=== PATIENT | male | born 1970 | race Caucasian/White ===

== ENCOUNTER 2018-11-14 11:26 | Outpatient (CLI) | payer MEDICAID | END 2018-11-14 11:27 | disposition critical access hospital (66) | LOC: EMS 11:26 | PROVIDERS: ATTEND Surgery | DX: R07.9 Chest pain, unspecified (principal); R20.0 Anesthesia of skin | CPT/HCPCS: A0425; A0427; A0999 ==

== ENCOUNTER 2018-11-14 11:47 | Emergency (ER) | payer MEDICAID ==
--- NOTE | 2018-11-14 14:08 | CT Report ---
Reason: syncope Procedure Date: 11/14/2018 Accession Number: [id number] / [id number] Procedure: CT - Head W/O CPT Code: FULL RESULT: EXAM: CT HEAD EXAM DATE: 11/14/2018 01:55 PM. CLINICAL HISTORY: Syncope. COMPARISON: None. TECHNIQUE: Multiaxial CT images were obtained from the foramen magnum to the vertex. Reformats: Sagittal and coronal. IV contrast: None. In accordance with CT protocol optimization, one or more of the following dose reduction techniques were utilized for this exam: automated exposure control, adjustment of mA and/or KV based on patient size, or use of iterative reconstructive technique. FINDINGS: Parenchyma: No intraparenchymal hemorrhage. No evidence of mass, midline shift, or CT findings of infarction. [place]-white differentiation is distinct. Normal volume for age. Extraaxial Spaces: Normal for age. No subdural or epidural collections identified. Ventricles: Normal in size and position. Sinuses and Orbits: Imaged paranasal sinuses, orbits, and mastoids show no significant abnormality. Bones: No evidence of fracture or calvarial defect. Other: None. IMPRESSION: Normal head CT. RADIA
--- NOTE | 2018-11-14 14:27 | ED Physician Documentation ---
PD HPI CHEST PAIN - Stated complaint Stated Complaint: chest px/soa - Chief complaint Chief Complaint: Cardiac - History obtained from History obtained from: Patient - History of Present Illness Timing - onset: How many years ago (5) Timing - duration: Hours Timing - details: Gradual onset, Intermittant Pain level max: 7 Pain level now: 5 Quality: Pressure Location: Left chest Radiation: Left upper extremity Improved by: Nothing Worsened by: Other (Nothing) Associated symptoms: Shortness of air, Feeling faint / dizzy. No: Diaphoresis, Nausea, Vomiting, General Weakness, Palpitations, Cough Similar symptoms before: Has not had sx before Recently seen: Not recently seen - Additional information Additional information: 48-year-old male with no past medical history, 3 pack/day cigarette smoker, family history of heart attack here with complaint of left-sided chest pain for the past 5 years which had been going on intermittently and sometimes radiating to the left arm associated with shortness of breath. He states it would last from seconds to sometimes all day. He described the left-sided chest pain as pressure which ranges between 5-7/10. Patient stated she he was having a disagreement with his over the phone so he started having chest discomfort and felt dizzy and then passed out. He does not recall how long his loss of consciousness lasted. He has not seen anybody for his chest pain. He denies any travel, trauma or drugs nor alcohol. Review of Systems Ten Systems: 10 systems reviewed and negative Constitutional: denies: Fever, Myalgias Cardiac: reports: Chest pain / pressure. denies: Palpitations, Pedal edema Respiratory: reports: Dyspnea. denies: Cough GI: denies: Abdominal Pain, Nausea, Vomiting Neurologic: reports: LOC. denies: Generalized weakness PD PAST MEDICAL HISTORY - Past Medical History Cardiovascular: None, Murmur Respiratory: COPD Neuro: None, Migraines Endocrine/Autoimmune: None GI: None : None HEENT: None Psych: Bipolar disorder, Schizophrenia, ADD/ADHD, Other Musculoskeletal: None Derm: None - Past Surgical History Past Surgical History: Yes HEENT: Tonsil/Adenoidectomy - Present Medications Home Medications: Ambulatory Orders Medication Instructions Recorded Confirmed Albuterol Sulf [Ventolin Hfa 1 - 2 puffs INH Q4HR PRN #1 inhaler 11/14/18 Inhaler] - Allergies Allergies/Adverse Reactions: Allergies Allergy/AdvReac Type Severity Reaction Status Date / Time bupropion HCl * Allergy psychotic Verified 11/14/18 11:53 [From Wellbutrin] clonazepam [From Klonopin] Allergy psychotic Verified 11/14/18 11:53 fluoxetine HCl * Allergy psychotic Verified 11/14/18 11:53 [From Prozac] Penicillins Allergy Anaphylaxis Verified 11/14/18 11:53 bee stings Allergy resp Uncoded 11/14/18 11:53 - Social History Does the pt smoke?: Yes Smoking Status: Current every day smoker Does the pt drink ETOH?: No Does the pt have substance abuse?: No - Immunizations Immunizations are current?: Yes - POLST Patient has POLST: No PD ED PE NORMAL - Vitals Vital signs reviewed: Yes - General General: Alert and oriented X 3, No acute distress, Well developed/nourished - HEENT HEENT: PERRL, EOMI, Moist mucous membranes, Pharynx benign - Neck Neck: Supple, no meningeal sign, No bony TTP - Cardiac Cardiac: RRR, No murmur - Respiratory Respiratory: No respiratory distress, Other (Few expiratory wheezes bilaterally) - Abdomen Abdomen: Normal bowel sounds, Soft, Non tender, Non distended - Back Back: No CVA TTP, No spinal TTP - Derm Derm: Warm and dry - Extremities Extremities: No deformity - Neuro Neuro: Alert and oriented X 3, 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, No motor deficit, No sensory deficit, Normal speech - Psych Psych: Normal mood, Normal affect Results - Vitals Vitals: Vital Signs - 24 hr 11/14/18 11/14/18 11/14/18 11:49 13:42 16:03 Temperature 36.4 C L Heart Rate 84 68 66 Respiratory 16 20 16 Rate Blood Pressure 127/94 H 116/102 H 120/78 O2 Saturation 99 98 99 Oxygen O2 Source Room air - EKG (time done) 1154 Rate: Rate (enter#) Rhythm: NSR [place]: Normal Intervals: Normal [place] QRS: Normal Ischemia: Normal ST segments - Labs Labs: Laboratory Tests 11/14/18 11/14/18 11/14/18 14:33 14:33 14:33 WBC 8.6 RBC 5.32 Hgb 16.5 Hct 48.7 MCV 91.6 MCH 31.1 H MCHC 33.9 RDW 13.0 Plt Count 242 MPV 9.2 Neut # (Auto) 5.2 Lymph # (Auto) 2.5 [place] # (Auto) 0.7 Eos # (Auto) 0.2 Baso # (Auto) 0.1 Absolute Nucleated RBC 0.00 Nucleated RBC % 0.1 D-Dimer Sodium 136 Potassium 4.3 Chloride 106 Carbon Dioxide 23 Anion Gap 7.0 BUN 19 Creatinine 1.1 Estimated GFR (MDRD) 72 L Glucose 104 H Calcium 9.6 Total Bilirubin 1.3 H AST 19 ALT 20 Alkaline Phosphatase 63 Troponin I < 0.04 B-Natriuretic Peptide Total Protein 7.7 Albumin 4.4 Globulin 3.3 Albumin/Globulin Ratio 1.3 Lipase 28 11/14/18 11/14/18 11/14/18 14:33 14:33 17:01 WBC RBC Hgb Hct MCV MCH MCHC RDW Plt Count MPV Neut # (Auto) Lymph # (Auto) [place] # (Auto) Eos # (Auto) Baso # (Auto) Absolute Nucleated RBC Nucleated RBC % D-Dimer < 200.0 L Sodium Potassium Chloride Carbon Dioxide Anion Gap BUN Creatinine Estimated GFR (MDRD) Glucose Calcium Total Bilirubin AST ALT Alkaline Phosphatase Troponin I < 0.04 B-Natriuretic Peptide 9 Total Protein Albumin Globulin Albumin/Globulin Ratio Lipase PD MEDICAL DECISION MAKING - ED course Complexity details: reviewed results, re-evaluated patient, considered differential (Angina, ACS, unstable angina, PE, bronchospasm, intracranial bleed), d/w patient, d/w family ED course: 1520 patient inform of test results and agreed to CT chest scan. Patient received Nitropaste earlier and patient to get off as it is not working for his chest discomfort. 1713 patient had been telling the staff that he wants to go home the past 10 minutes. He did agree to wait for the second heart enzyme results. Patient updated on test results Including liver lesion which will require outpatient follow-up Such as liver CT or ultrasound. Patient did say he used to drink a lot several years ago. Discussed smoking cessation. Instructed to follow-up with primary doctor tomorrow for reevaluation and a referral for outpatient stress test.1747-second troponin negative will discharge patient.Patient had requested for albuterol inhaler for his wheezing. He was encouraged to stop smoking. Departure - Departure Disposition: 01 Home, Self Care Clinical Impression: Chest pain Qualifiers: Chest pain type: unspecified Qualified Code(s): R07.9 - Chest pain, unspecified Condition: Stable Instructions: ED Chest Pain Atypical Unkn Cause, ED Smoking Cessation Prescriptions: Albuterol Sulf [Ventolin Hfa Inhaler] 1 - 2 puffs INH Q4HR PRN #1 inhaler PRN Reason: Shortness Of Air/Wheezing Comments: Follow-up with your primary doctor tomorrow for reevaluation and referral to outpatient stress test And liver CT or liver ultrasound referral. [facility]. If worse return to the emergency room.
[2018-11-14 14:42] LABS: BASOPHILS # (AUTO) 0.1 10^3/uL (0.0-0.1); BASOPHILS % (AUTO) 0.9 %; EOSINOPHILS # (AUTO) 0.2 10^3/uL (0.0-0.7); EOSINOPHILS % (AUTO) 2.1 %; HGB - HEMOGLOBIN 16.5 g/dL (14.0-18.0); LYMPHOCYTES # (AUTO) 2.5 10^3/uL (1.5-3.5); LYMPHOCYTES % (AUTO) 28.7 %; MEAN CORPUSCULAR HEMOGLOBIN 31.1 pg (27.0-31.0); MEAN CORPUSCULAR HGB CONC 33.9 g/dL (32.0-36.0); MEAN CORPUSCULAR VOLUME 91.6 fL (80.0-94.0); MEAN PLATELET VOLUME 9.2 fL (7.4-11.4); MONOCYTES # (AUTO) 0.7 10^3/uL (0.0-1.0); MONOCYTES % (AUTO) 8.2 %; NEUTROPHILS # (AUTO) 5.2 10^3/uL (1.5-6.6); NEUTROPHILS % (AUTO) 60.1 %; PLT - PLATELET COUNT 242 10^3/uL (130-450); RED BLOOD COUNT 5.32 10^6/uL (4.70-6.10); WHITE BLOOD COUNT 8.6 x10^3/uL (4.8-10.8)
--- NOTE | 2018-11-14 14:44 | XRAY Report ---
Reason: chest pain Procedure Date: 11/14/2018 Accession Number: [id number] / [id number] Procedure: XR - Chest 1 View X-Ray CPT Code: 36426 FULL RESULT: EXAM: CHEST RADIOGRAPHY EXAM DATE: 11/14/2018 02:00 PM. CLINICAL HISTORY: Chest pain. COMPARISON: 07/04/2012 1:15 PM. TECHNIQUE: 1 view. FINDINGS: Lungs/Pleura: No focal opacities evident. No pleural effusion. No pneumothorax. Mediastinum: Within exam limitations, the cardiomediastinal contour is normal. Other: None. IMPRESSION: Normal single view chest. RADIA
[2018-11-14 14:55] LABS: ALBUMIN 4.4 g/dL (3.2-5.5); ALBUMIN/GLOBULIN RATIO 1.3 (1.0-2.2); BILIRUBIN,TOTAL 1.3 mg/dL (0.2-1.0); CALCIUM 9.6 mg/dL (8.5-10.3); CREATININE 1.1 mg/dL (0.6-1.2); TOTAL PROTEIN 7.7 g/dL (6.7-8.2)
[2018-11-14] MEDS ORDERED: ASPIRIN CHEW 81 MG TABLET PO STA (15:23)
[2018-11-14] MEDS ORDERED: IOVERSOL 320 100 ML VIAL IVP ONE ×2 (15:30→16:06)
[2018-11-14 16:04] VITALS: BP 120/78
--- NOTE | 2018-11-14 16:56 | CT Report ---
Reason: chest pain, left chest mass Procedure Date: 11/14/2018 Accession Number: [id number] / [id number] Procedure: CT - Chest W/ CPT Code: FULL RESULT: EXAM: CT CHEST EXAM DATE: 11/14/2018 03:57 PM. CLINICAL HISTORY: Chest pain, left chest mass. COMPARISONS: None. TECHNIQUE: Routine helical CT imaging was performed through the chest. IV contrast: 90 cc Optiray 320. Reconstructions: Coronal and sagittal. In accordance with CT protocol optimization, one or more of the following dose reduction techniques were utilized for this exam: automated exposure control, adjustment of mA and/or KV based on patient size, or use of iterative reconstructive technique. FINDINGS: Lungs/Pleura: Clear. No effusion or pneumothorax. Mediastinum: Normal heart size. Borderline left ventricular wall thickness measuring 14.5 mm. No pericardial effusion. No coronary artery calcifications. No lymphadenopathy. Bones: Unremarkable. Visualized Abdomen: Small hepatic cysts or hemangiomata. A peripheral hypoattenuated lesion in the right lobe measures as much as 3.6 x 2.2 cm and has prominent rim calcification with at least 2 localized areas of more nodular appearing calcification. Otherwise unremarkable. Other: None. IMPRESSION: 1. Borderline left ventricular wall thickening suggesting early LVH. 2. Otherwise unremarkable chest. 3. Hepatic lesion as described. Differential considerations include Echinococcus cyst or an uncommon appearance of primary liver neoplasm. Further evaluation with dedicated liver CT, MR scan, or ultrasound may be helpful. RADIA
== END 2018-11-14 17:58 | disposition home or self-care (01) ==
LOC: EDUNIT# → ED 11:47
DX: R07.9 Chest pain, unspecified (principal); Z82.49 Family history of ischemic heart disease and other diseases of the circulatory system; K76.9 Liver disease, unspecified; J44.9 Chronic obstructive pulmonary disease, unspecified; F17.210 Nicotine dependence, cigarettes, uncomplicated
CPT/HCPCS: 36415; 70450; 71045; 71260; 80053; 83690; 83880; 84484; 85025; 85379; 93005; 99283; 99284; A9270; Q9967; 83605; 85610; 85730; 87040

== ENCOUNTER 2022-03-05 07:37 | Outpatient (CLI) | payer MEDICAID ==
[2022-03-05 11:54] LABS: BASOPHILS % (AUTO) 0.6 %; EOSINOPHILS # (AUTO) 0.3 10^3/uL (0.0-0.7); EOSINOPHILS % (AUTO) 4.3 %; HCT - HEMATOCRIT 43.9 % (42.0-52.0); HGB - HEMOGLOBIN 14.7 g/dL (14.0-18.0); LYMPHOCYTES # (AUTO) 2.9 10^3/uL (1.5-3.5); LYMPHOCYTES % (AUTO) 41.5 %; MEAN CORPUSCULAR HEMOGLOBIN 30.5 pg (27.0-31.0); MEAN CORPUSCULAR HGB CONC 33.5 g/dL (32.0-36.0); MEAN CORPUSCULAR VOLUME 91.1 fL (80.0-94.0); MEAN PLATELET VOLUME 11.8 fL (7.4-11.4); MONOCYTES # (AUTO) 0.6 10^3/uL (0.0-1.0); MONOCYTES % (AUTO) 9.2 %; NEUTROPHILS # (AUTO) 3.1 10^3/uL (1.5-6.6); NEUTROPHILS % (AUTO) 43.8 %; PLT - PLATELET COUNT 244 10^3/uL (130-450); RED BLOOD COUNT 4.82 10^6/uL (4.70-6.10); RED CELL DISTRIBUTION WIDTH 12.3 % (12.0-15.0)
[2022-03-05 11:58] LABS: ALBUMIN/GLOBULIN RATIO 1.2 (1.0-2.2); ALKALINE PHOSPHATASE 55 IU/L (42-121); ALT ALANINE AMINOTRANSFERASE 58 IU/L (10-60); AST ASPARTATE AMINOTRANSFERASE 32 IU/L (10-42); BILIRUBIN,TOTAL 1.1 mg/dL (0.2-1.0); BUN - BLOOD UREA NITROGEN 18 mg/dL (6-20); CALCIUM 9.2 mg/dL (8.5-10.3); CARBON DIOXIDE - CO2 27 mmol/L (21-32); CHLORIDE 102 mmol/L (101-111); CHOL/HDL RATIO 5.6 (<5.0); CHOLESTEROL 203 mg/dL; CREATININE 1.2 mg/dL (0.6-1.2); GFR - MDRD 64 (>89); GLUCOSE 148 mg/dL (70-100); HDL CHOLESTEROL 36 mg/dL; LDL CHOLESTEROL,CALCULATED 120 mg/dL; LDL/HDL RATIO 3.3 (<3.6); POTASSIUM 4.1 mmol/L (3.5-5.0); SODIUM 137 mmol/L (135-145); TOTAL PROTEIN 7.4 g/dL (6.7-8.2); TRIGLYCERIDES 236 mg/dL; VLDL CHOLESTEROL 47 mg/dL
[2022-03-05 12:08] LABS: THYROID STIMULATING HORMONE 1.69 uIU/mL (0.34-5.60)
== END 2022-03-05 07:38 | disposition home or self-care (01) ==
LOC: LAB.N 07:37
PROVIDERS: ATTEND Family Medicine
DX: I10 Essential (primary) hypertension (principal); E66.9 Obesity, unspecified; R06.83 Snoring
CPT/HCPCS: 36415; 80053; 80061; 83721; 84443; 85025

== ENCOUNTER 2022-03-19 06:47 | Outpatient (CLI) | payer MEDICAID ==
--- NOTE | 2022-03-19 13:22 | Ultrasound Report ---
PROCEDURE: Abdomen Complete INDICATIONS: LIVER MASS TECHNIQUE: Real-time scanning was performed of the abdominal and retroperitoneal organs, with image documentatio n. COMPARISON: CT chest 11/14/2018.. FINDINGS: Liver: Liver demonstrates increased in echogenicity compatible with fatty infiltration. There is a p eripherally calcified cyst in the right hepatic lobe measuring up to 3.1 x 3.0 x 2.8 cm corresponding to the finding on prior CT. There is also an adjacent smaller cyst or small component of a bilobed c yst also demonstrating peripheral calcification measuring up to 1.1 x 1.1 cm. Elsewhere, there are 2 additional simple appearing anechoic cysts demonstrated, measuring up to 1.3 cm and 1.1 cm. Gallbladder: No gallstones, gallbladder wall thickening, or pericholecystic fluid. Biliary ducts: Intrahepatic bile ducts are non-dilated. Extrahepatic bile duct caliber measures up to 0.5 cm. Pancreas: Visualized portions of the pancreas are sonographically normal. Pancreatic tail was not we ll seen. Spleen: Spleen is normal in size, measuring up to 10.6 cm, and homogeneous in echotexture. Kidneys: Right kidney measures 12.1 cm long; left kidney measures 11.3 cm long. No hydronephrosis. Aorta: Visualized aorta is normal in caliber at less than 3 cm. Iliacs: Proximal common iliac arteries are normal in caliber at less than 2.5 cm. IVC: Intrahepatic inferior vena cava is patent. Miscellaneous: No free abdominal fluid. IMPRESSION: 1. Increased hepatic echogenicity likely representing steatosis. 2. Peripherally calcified clustered cysts or bilobed cyst in the right hepatic lobe corresponding to the finding on prior CT. Findings likely represent sequelae of prior infection and are similar in siz e compared to the prior study given differences in technique. Reviewed by: Alfa Morfin MD on 03/19/2022 1:20 PM PDT Approved by: Alfa Morfin MD on 03/19/2022 1:20 PM PDT Station ID: [id number]
== END 2022-03-19 06:48 | disposition home or self-care (01) ==
LOC: DI 06:47
PROVIDERS: ATTEND Family Medicine
DX: K76.89 Other specified diseases of liver (principal); R93.2 Abnormal findings on diagnostic imaging of liver and biliary tract

== ENCOUNTER 2022-08-19 07:56 | Outpatient (CLI) | payer MEDICAID ==
[2022-08-19 12:27] LABS: BASOPHILS # (AUTO) 0.1 10^3/uL (0.0-0.1); BASOPHILS % (AUTO) 0.8 %; EOSINOPHILS # (AUTO) 0.3 10^3/uL (0.0-0.7); HGB - HEMOGLOBIN 16.4 g/dL (14.0-18.0); LYMPHOCYTES # (AUTO) 2.8 10^3/uL (1.5-3.5); LYMPHOCYTES % (AUTO) 43.2 %; MEAN CORPUSCULAR HEMOGLOBIN 30.3 pg (27.0-31.0); MEAN CORPUSCULAR HGB CONC 34.9 g/dL (32.0-36.0); MEAN CORPUSCULAR VOLUME 86.7 fL (80.0-94.0); MEAN PLATELET VOLUME 12.4 fL (7.4-11.4); MONOCYTES # (AUTO) 0.6 10^3/uL (0.0-1.0); MONOCYTES % (AUTO) 8.9 %; NEUTROPHILS # (AUTO) 2.8 10^3/uL (1.5-6.6); NEUTROPHILS % (AUTO) 42.5 %; PLT - PLATELET COUNT 231 10^3/uL (130-450); RED BLOOD COUNT 5.42 10^6/uL (4.70-6.10); RED CELL DISTRIBUTION WIDTH 11.9 % (12.0-15.0); WHITE BLOOD COUNT 6.5 x10^3/uL (4.8-10.8)
[2022-08-19 12:37] LABS: BILIRUBIN,URINE NEGATIVE (NEGATIVE); GLUCOSE, URINE (UA) >=1000 mg/dL (NEGATIVE); KETONES,URINE (UA) 40 mg/dL (NEGATIVE); LEUKOCYTE ESTERASE, URINE NEGATIVE (NEGATIVE); NITRITE,URINE NEGATIVE (NEGATIVE); OCCULT BLOOD,URINE NEGATIVE (NEGATIVE); PH,URINE 5.5 PH (5.0-7.5); PROTEIN,URINE NEGATIVE (NEGATIVE); UROBILINOGEN,URINE 0.2 (NORMAL) E.U./dL (NORMAL)
[2022-08-19 12:43] LABS: CLARITY,URINE CLEAR (CLEAR)
[2022-08-19 13:12] LABS: ALBUMIN 4.5 g/dL (3.2-5.5); ALBUMIN/GLOBULIN RATIO 1.2 (1.0-2.2); ALKALINE PHOSPHATASE 115 IU/L (42-121); ALT ALANINE AMINOTRANSFERASE 49 IU/L (10-60); AST ASPARTATE AMINOTRANSFERASE 21 IU/L (10-42); BILIRUBIN,TOTAL 1.3 mg/dL (0.2-1.0); BUN - BLOOD UREA NITROGEN 21 mg/dL (6-20); CALCIUM 10.1 mg/dL (8.5-10.3); CARBON DIOXIDE - CO2 25 mmol/L (21-32); CHLORIDE 99 mmol/L (101-111); CHOL/HDL RATIO 9.9 (<5.0); CHOLESTEROL 286 mg/dL; CREATININE 1.2 mg/dL (0.6-1.2); GFR - MDRD 64 (>89); GLUCOSE 368 mg/dL (70-100); HDL CHOLESTEROL 29 mg/dL; POTASSIUM 4.7 mmol/L (3.5-5.0); SODIUM 134 mmol/L (135-145); TOTAL PROTEIN 8.2 g/dL (6.7-8.2); TRIGLYCERIDES 1404 mg/dL
[2022-08-19 13:16] LABS: BACTERIA,URINE None Seen /HPF (None Seen); CRYSTALS,URINE 26-50 Uric Acid /LPF; RBC,URINE None Seen /HPF (0-5); SQUAMOUS EPITHELIAL CELL,UR NONE SEEN (<= Few); WBC,URINE 0-3 /HPF (0-3)
[2022-08-19 13:17] LABS: ESTIMATED AVERAGE GLUCOSE 315 mg/dL (70-100); HEMOGLOBIN A1c% 12.6 % (4.27-6.07)
[2022-08-19 15:12] LABS: LDL CHOLESTEROL,DIRECT 53 mg/dL; LDLD/HDL RATIO 1.8 (<3.6)
== END 2022-08-19 07:57 | disposition home or self-care (01) ==
LOC: LAB.N 07:56
PROVIDERS: ATTEND Nurse Practitioner
DX: I10 Essential (primary) hypertension (principal); E78.5 Hyperlipidemia, unspecified; R35.89 Other polyuria; R39.12 Poor urinary stream
CPT/HCPCS: 36415; 80053; 80061; 81001; 83036; 83721; 84153; 85025; 87086

== ENCOUNTER 2022-11-24 08:00 | Outpatient (CLI) | payer MEDICAID ==
[2022-11-24 13:35] LABS: CREATININE,URINE 54.2 mg/dL
[2022-11-24 13:46] LABS: ESTIMATED AVERAGE GLUCOSE 143 mg/dL (70-100); HEMOGLOBIN A1c% 6.6 % (4.27-6.07)
[2022-11-24 13:50] LABS: MICROALBUMIN,URINE < 0.2 mg/dL (0-300.0)
== END 2022-11-24 08:01 | disposition home or self-care (01) ==
LOC: LAB.N 08:00
PROVIDERS: ATTEND Nurse Practitioner
DX: E11.9 Type 2 diabetes mellitus without complications (principal); Z79.4 Long term (current) use of insulin
CPT/HCPCS: 36415; 82043; 82570; 83036

== ENCOUNTER 2023-02-22 07:20 | Outpatient (CLI) | payer MEDICAID ==
[2023-02-22 13:26] LABS: BUN - BLOOD UREA NITROGEN 20 mg/dL (6-20); CALCIUM 9.2 mg/dL (8.5-10.3); CARBON DIOXIDE - CO2 28 mmol/L (21-32); CHLORIDE 105 mmol/L (101-111); CHOL/HDL RATIO 5.2 (<5.0); CHOLESTEROL 196 mg/dL; CREATININE 1.1 mg/dL (0.6-1.2); GFR - MDRD 71 (>89); GLUCOSE 128 mg/dL (70-100); HDL CHOLESTEROL 38 mg/dL; LDL CHOLESTEROL,CALCULATED 131 mg/dL; LDL/HDL RATIO 3.4 (<3.6); POTASSIUM 4.1 mmol/L (3.5-5.0); SODIUM 138 mmol/L (135-145); TRIGLYCERIDES 133 mg/dL; VLDL CHOLESTEROL 27 mg/dL
[2023-02-22 14:35] LABS: ESTIMATED AVERAGE GLUCOSE 128 mg/dL (70-100); HEMOGLOBIN A1c% 6.1 % (4.27-6.07)
== END 2023-02-22 07:21 | disposition home or self-care (01) ==
LOC: LAB.N 07:20
PROVIDERS: ATTEND Nurse Practitioner
DX: E11.9 Type 2 diabetes mellitus without complications (principal); E78.5 Hyperlipidemia, unspecified; Z79.4 Long term (current) use of insulin
CPT/HCPCS: 36415; 80048; 80061; 83036; 83721

== ENCOUNTER 2023-05-25 07:25 | Outpatient (CLI) | payer MEDICAID ==
[2023-05-25 12:13] LABS: ESTIMATED AVERAGE GLUCOSE 134 mg/dL (70-100); HEMOGLOBIN A1c% 6.3 % (4.27-6.07)
[2023-05-25 12:15] LABS: CHOL/HDL RATIO 4.3 (<5.0); CHOLESTEROL 134 mg/dL; HDL CHOLESTEROL 31 mg/dL; LDL CHOLESTEROL,CALCULATED 73 mg/dL; LDL/HDL RATIO 2.4 (<3.6); TRIGLYCERIDES 149 mg/dL; VLDL CHOLESTEROL 30 mg/dL
== END 2023-05-25 07:26 | disposition home or self-care (01) ==
LOC: LAB.N 07:25
PROVIDERS: ATTEND Nurse Practitioner
DX: E78.5 Hyperlipidemia, unspecified (principal); Z51.81 Encounter for therapeutic drug level monitoring; E11.9 Type 2 diabetes mellitus without complications; Z79.4 Long term (current) use of insulin
CPT/HCPCS: 36415; 80061; 83036; 83721

== ENCOUNTER 2023-06-22 07:34 | Outpatient (CLI) | payer MEDICAID ==
--- NOTE | 2023-06-22 08:10 | CARDIAC PROCEDURE NOTE ---
Stress Test Report Service Date: 06/22/23 Service Time: 08:00 Ordering Provider: Wanda Richardson ARNP Indication for Test: Assess chest discomfort. Significant Medical History: Bandar is referred for a stress echocardiogram to assess chest discomfort with both typical and atypical characteristics. He has a long tobacco smoking history and recent diagnosis of diabetes. Was much more active in earlier years, activities now are mostly housework and mowing his lawn. He reports experiencing upper left chest discomfort either early in the morning upon arising or after prolonged lying down during the day. He does not typically experience exertional discomfort, except upon doing the dishes (he reports). He has moderate dyspnea with exertion, that he believes is not out of proportion to what he would expect, based on his smoking history and relative lack of good conditioning. He is occasionally aware of an activity-related heavy heart beat, but denies resting palpitations and dyspnea. He was told he had a heart murmur early in his adult life, but the cause was never determined. Cardiac Risk Factors: Positive for a 40-pack year tobacco smoking history, with transition to nicotine vaping 2 years ago; positive for diabetes (diagnosed about a year ago with HbA1c of >12%, now ~6%); negative for history of hyperlipidemia and hypertension. His family history of CAD is minimal, with only his paternal grandfather and none of his 9 siblings being so affected. Type of Stress Test: ETT with Echocardiography Procedure: -Exercise Treadmill Test- After signing informed consent, the patient underwent echo imaging at rest and then performed treadmill exercise using a [place] protocol. The patient exercised for 7 minutes 30 seconds and achieved a peak heart rate of 154 (90 percent predicted maximum heart rate for age), and an estimated workload of 9.4 METS. The test was terminated due to fatigue/shortness of breath and left calf discomfort. Resting heart rate: 81 Peak heart rate: 154 Normal response to exercise. Resting BP: 124/91 Peak BP: 183/61 Hypertensive diastolic BP at rest with normal increase in systolic BP and decrease in diastolic BP in response to exercise. Rhythm during exercise: Sinus rhythm throughout, without ectopy noted. Symptoms: In mid stage 2 he experienced mid sternal chest discomfort (different in nature than his typical spontaneous upper left chest discomfort) and headache; the chest discomfort was 4-6/10 in intensity and fully resolved immediately upon stopping exercise. EKG at rest showed normal sinus rhythm, normal in all aspects. EKG at peak stress showed J-point depression with upsloping ST segments NOT meeting diagnostic criteria for ischemia. In Recovery heart rate recovery was abnormally delayed with BP returning more rapidly towards baseline (HR was 117, BP 129/48 at 5:00). Echo imaging, performed at rest and with stress, will be reported separately. Pedro Pablo Connors MD, was present throughout this treadmill stress study and supervised it in its entirety. Summary: 1) Exercise tolerance significantly reduced for age and sex as evidenced by ELVIA of 26%. 2) Normal resting EKG. 3) Adequate level of exercise was achieved on this treadmill stress test. 4) Abnormal resting BP, with normal BP response to exercise. 5) No ischemic changes by EKG criteria were seen at peak stress. 6) Echo image interpretation reveals normal left ventricular size, wall thickness and systolic function, with appropriate hyperdynamic augmentation of all segments with exercise, indicating no evidence of prior infarct or inducible ischemia. No significant valvular abnormality was seen on screening study, though there was mild elevation of estimated pulmonary artery systolic pressure based on tricuspid regurgitation jet velocity, without evidence of increased central venous pressure. See separate report for more details. Conclusions and Recommendations: 1) Overall reassuring treadmill stress echocardiogram without clear EKG or echo evidence of ischemia, in setting of patient experiencing non-limiting chest pressure during the protocol. 2) Patient was advised to work further on discontinuation of nicotine vaping and to try to slowly increase his physical exertion level, to at least 150 minutes of vigorous walking per week.
== END 2023-06-22 07:35 | disposition home or self-care (01) ==
LOC: DI 07:34
PROVIDERS: ATTEND Nurse Practitioner
DX: R07.9 Chest pain, unspecified (principal); E11.9 Type 2 diabetes mellitus without complications; F17.290 Nicotine dependence, other tobacco product, uncomplicated; R06.09 Other forms of dyspnea
CPT/HCPCS: 93350

== ENCOUNTER 2023-09-13 07:05 | Outpatient (CLI) | payer MEDICAID ==
[2023-09-13 13:23] LABS: ESTIMATED AVERAGE GLUCOSE 140 mg/dL (70-100); HEMOGLOBIN A1c% 6.5 % (4.27-6.07)
[2023-09-13 13:28] LABS: CALCIUM 9.7 mg/dL (8.5-10.3)
== END 2023-09-13 07:06 | disposition home or self-care (01) ==
LOC: LAB.N 07:05
PROVIDERS: ATTEND Nurse Practitioner
DX: E11.9 Type 2 diabetes mellitus without complications (principal); Z79.4 Long term (current) use of insulin
CPT/HCPCS: 36415; 80048; 83036

== ENCOUNTER 2024-01-27 07:05 | Outpatient (CLI) | payer MEDICAID ==
[2024-01-27 12:00] LABS: ESTIMATED AVERAGE GLUCOSE 143 mg/dL (70-100); HEMOGLOBIN A1c% 6.6 % (4.27-6.07)
[2024-01-27 12:04] LABS: BASOPHILS # (AUTO) 0.1 10^3/uL (0.0-0.1); BASOPHILS % (AUTO) 0.7 %; EOSINOPHILS # (AUTO) 0.3 10^3/uL (0.0-0.7); EOSINOPHILS % (AUTO) 3.4 %; HCT - HEMATOCRIT 46.9 % (42.0-52.0); HGB - HEMOGLOBIN 15.1 g/dL (14.0-18.0); LYMPHOCYTES # (AUTO) 3.2 10^3/uL (1.5-3.5); LYMPHOCYTES % (AUTO) 42.7 %; MEAN CORPUSCULAR HEMOGLOBIN 29.4 pg (27.0-31.0); MEAN CORPUSCULAR HGB CONC 32.2 g/dL (32.0-36.0); MEAN CORPUSCULAR VOLUME 91.4 fL (80.0-94.0); MEAN PLATELET VOLUME 11.6 fL (7.4-11.4); MONOCYTES # (AUTO) 0.7 10^3/uL (0.0-1.0); MONOCYTES % (AUTO) 8.6 %; NEUTROPHILS # (AUTO) 3.3 10^3/uL (1.5-6.6); NEUTROPHILS % (AUTO) 44.2 %; PLT - PLATELET COUNT 260 10^3/uL (130-450); RED BLOOD COUNT 5.13 10^6/uL (4.70-6.10); RED CELL DISTRIBUTION WIDTH 12.5 % (12.0-15.0); WHITE BLOOD COUNT 7.5 x10^3/uL (4.8-10.8)
[2024-01-27 12:26] LABS: ALBUMIN 4.4 g/dL (3.2-5.5); ALBUMIN/GLOBULIN RATIO 1.4 (1.0-2.2); ALKALINE PHOSPHATASE 79 IU/L (42-121); ALT ALANINE AMINOTRANSFERASE 46 IU/L (10-60); AST ASPARTATE AMINOTRANSFERASE 19 IU/L (10-42); BILIRUBIN,TOTAL 0.5 mg/dL (0.2-1.0); BUN - BLOOD UREA NITROGEN 17 mg/dL (6-20); CARBON DIOXIDE - CO2 27 mmol/L (21-32); CHLORIDE 106 mmol/L (101-111); CHOL/HDL RATIO 3.1 (<5.0); CHOLESTEROL 105 mg/dL; CREATININE 1.1 mg/dL (0.6-1.3); GFR - MDRD 71 (>89); GLUCOSE 130 mg/dL (74-104); HDL CHOLESTEROL 34 mg/dL; LDL CHOLESTEROL,CALCULATED 51 mg/dL; LDL/HDL RATIO 1.5 (<3.6); POTASSIUM 4.3 mmol/L (3.5-4.5); SODIUM 139 mmol/L (135-145); TOTAL PROTEIN 7.5 g/dL (6.4-8.9); TRIGLYCERIDES 101 mg/dL (48-352); VLDL CHOLESTEROL 20 mg/dL
[2024-01-27 12:29] LABS: THYROID STIMULATING HORMONE 1.79 uIU/mL (0.34-5.60)
== END 2024-01-27 07:06 | disposition home or self-care (01) ==
LOC: LAB.N 07:05
PROVIDERS: ATTEND Nurse Practitioner
DX: I10 Essential (primary) hypertension (principal); E78.5 Hyperlipidemia, unspecified; E11.9 Type 2 diabetes mellitus without complications; Z79.4 Long term (current) use of insulin
CPT/HCPCS: 36415; 80053; 80061; 83036; 83721; 84443; 85025

== ENCOUNTER 2024-08-02 07:11 | Outpatient (CLI) | payer MEDICAID ==
[2024-08-02 12:24] LABS: ESTIMATED AVERAGE GLUCOSE 140 mg/dL (70-100); HEMOGLOBIN A1c% 6.5 % (4.27-6.07)
[2024-08-02 12:53] LABS: CALCIUM 9.3 mg/dL (8.5-10.3); CREATININE 1.1 mg/dL (0.6-1.3); POTASSIUM 4.4 mmol/L (3.5-4.5)
== END 2024-08-02 07:12 | disposition home or self-care (01) ==
LOC: LAB.N 07:11
PROVIDERS: ATTEND Nurse Practitioner
DX: E11.9 Type 2 diabetes mellitus without complications (principal); Z79.4 Long term (current) use of insulin
CPT/HCPCS: 36415; 80048; 83036